=== PATIENT | female | born 1990 | race Caucasian/White ===

== ENCOUNTER 2016-09-12 19:21 | Emergency (ER) | payer MEDICAID ==
--- NOTE | 2016-09-12 20:48 | ERNOTE ---
Medical Problem HPI - General Chief Complaint: General Assessment Time Seen by Provider: 09/12/16 20:23 Source: patient Exam Limitations: no limitations - Immun/Allergies/Home Medications Immunizations: IMMUNIZATION HX Immunizations Up to Date Yes History of Influenza Vaccine No Hx Pneumococcal Vaccination No Allergies/Adverse Reactions: Allergies No Known Allergies Allergy (Verified 10/10/15 22:49) Home Medications: HOME MEDICATIONS NK [No Home Medication] 09/12/16 [Last Taken Unknown] - History of Present History Narrative: Pt states she has swelling of her left cheek yesterday and has improved today Timing: other - improving Severity: mild - today, moderate - yesterday Review of Systems - Review of Systems Constitutional: Absent: recent illness, fever ENT: Absent: ear pain, nose congestion, sore throat Respiratory: Absent: cough Cardiology: Present: no symptoms reported Gastrointestinal/Abdominal: Present: no symptoms reported Genitourinary: Present: no symptoms reported Musculoskeletal: Present: no symptoms reported Skin: Absent: rash Neurological: Present: no symptoms reported Endocrine: Present: no symptoms reported Hematologic/Lymphatic: Present: no symptoms reported Psych: Present: no symptoms reported - Patient's Past Medical History Patient History - Medical: No pertinent hx Patient History - Cardiac/Respiratory: No pertinent hx Patient History - Cancer: No Hx of Cancer Patient History - Surgical Procedures: No surgical history Patient History - Other: None LMP (females 10-50): this week - Social History Living Situations: home Abuse History: No History of abuse Psych History: No pertinent hx Smoking Status: Current every day smoker Have you smoked in the past 12 months: Yes Do you dip or chew tobacco: No Patient requests Smoking Cessation Consult: No Initiate information on Smoking Cessation: No Alcohol Use: none Drug Use: none - Immunizations Immunizations Up to Date: Yes Hx Pneumococcal Vaccination: No History of Influenza Vaccine: No Physical Exam - Physical Exam General Appearance: Present: wd/wn, alert, no apparent distress Eye Exam: Normal inspection: bilateral Ears, Nose, Throat: Present: normal pharynx, other - Nasal mucosa pink. TM's clear, moderate cerumen on the left removed under direct observation. Thickness of the posterior parotid on the left, non-tender. oral mucosa pink, moist Neck: Present: normal inspection, nontender. Absent: lymphadenopathy (R), lymphadenopathy (L) Extremity Exam: Present: normal inspection, non-tender, no edema, normal range of motion Neurological Exam: Present: alert, oriented, normal mood/affect, no motor/ sensory deficits Skin Exam: Present: normal color, warm/dry Lymphatic Exam: Present: no adenopathy ED Progress - Vital Signs Vital Signs: Vital Signs 09/12/16 19:39 Temperature 36.6 C Pulse Rate 63 Respiratory 16 Rate Blood Pressure 109/72 O2 Sat by Pulse 100 Oximetry - Progress/Reassessment Chief Complaint: General Assessment Departure - Departure Clinical Impression: Parotid duct obstruction Disposition: Home self-care Condition: Good Instructions: Parotitis
[2016-09-12 21:35] VITALS: BP 112/62
== END 2016-09-12 20:41 | disposition home or self-care (01) ==
LOC: ER 19:21
DX: K11.8 Other diseases of salivary glands (principal); F17.210 Nicotine dependence, cigarettes, uncomplicated